=== PATIENT | male | born 1945 | race Caucasian/White ===

== ENCOUNTER 2019-09-26 22:49 | Emergency (ER) | payer OTHER ==
[2019-09-26] MEDS ORDERED: NA CHLORIDE 0.9% 1,000 ML ONE (23:19)
[2019-09-26 23:32] LABS: Absolute Lymphocytes (CBC) 0.8 K/uL (0.7-4.9); Basophils % 0.4 % (0-1.3); Hematocrit 44.3 % (39.6-49.0); Lymphocytes % 7.7 % (15.3-44.8); MPV 8.9 fL (7.6-11.3); RBC Red Blood Cell Count 5.04 M/uL (4.33-5.43)
[2019-09-26 23:51] LABS: Albumin 3.6 g/dL (3.4-5.0); Bilirubin Direct 0.4 mg/dL (0-0.2); Bilirubin Total 0.9 mg/dL (0.2-1.0); Potassium 3.8 mmol/L (3.5-5.1); Protein, Total 7.1 g/dL (6.4-8.2)
--- NOTE | 2019-09-27 01:06 | ER ---
Nurse's Notes [facility] Name: Baron Head Age: 73 yrs Sex: Male : 1945 Arrival Date: 09/26/2019 Time: 22:50 Bed 2 Private MD: Abhi Bauman Diagnosis: Choledocholithiasis Presentation: 09/26 23:03 Presenting complaint: Patient states: he is having pain in his abdomen all day the pain bb is worse when he eats he had an episode like this a few weeks ago and it went away after a few hours but the pain is not going away this time. Denies nausea, vomiting, diarrhea. Transition of care: patient was not received from another setting of care. Onset of symptoms was September 26, 2019. Risk Assessment: Do you want to hurt yourself or someone else? Patient reports no desire to harm self or others. Initial Sepsis Screen: Does the patient meet any 2 criteria? No. Patient's initial sepsis screen is negative. Does the patient have a suspected source of infection? No. Patient's initial sepsis screen is negative. Care prior to arrival: None. 23:03 Method Of Arrival: Ambulatory bb 23:03 Acuity: ABELARDO 3 bb Historical: - Allergies: 23:05 thorazine; bb 09/27 01:13 Sulfa (Sulfonamide Antibiotics); ea - Home Meds: 09/26 23:05 levothyroxine oral [Active]; bb - PMHx: 23:05 Hypothyroidism; bb - PSHx: 23:05 Appendectomy; bb - Immunization history:: Adult Immunizations up to date, Last tetanus immunization: up to date Flu vaccine is up to date. - Coronavirus screen:: The patient has NOT traveled to [place], [place], or [place] in the past 14 days. Proceed with normal triage process as indicated. - Social history:: Smoking status: Patient denies any tobacco usage or history of. - Ebola Screening: : No symptoms or risks identified at this time. Screenin:25 Abuse screen: Denies threats or abuse. Nutritional screening: No deficits noted. ea Tuberculosis screening: No symptoms or risk factors identified. Fall Risk IV access (20 points). Assessment: 23:24 General: Appears in no apparent distress. Behavior is calm, cooperative, appropriate ea for age. Pain: Complains of pain in right lower quadrant and left lower quadrant. Neuro: Level of Consciousness is awake, alert, obeys commands, Oriented to person, place, time, situation. Cardiovascular: Patient's skin is warm and dry. Respiratory: Airway is patent Respiratory effort is even, unlabored, Respiratory pattern is regular, symmetrical. GI: Abdomen is non-distended, Bowel sounds present X 4 quads. Abd is soft and non tender X 4 quads. Derm: Skin is pink, warm \T\ dry. 09/27 01:30 Reassessment: Patient and/or family updated on plan of care and expected duration. Pain ea level reassessed. Patient is alert, oriented x 3, equal unlabored respirations, skin warm/dry/pink. 02:50 Reassessment: Patient and/or family updated on plan of care and expected duration. Pain ea level reassessed. Patient is alert, oriented x 3, equal unlabored respirations, skin warm/dry/pink. EMS at facility for transfer, report given to [facility]. Pt left ED via stretcher per EMS. Pt tolerating well. No s/s of pain or discomfort noted at this time. Vital Signs: 09/26 23:05 BP 146 / 84; Pulse 72; Resp 16 S; Temp 98.5(O); Pulse Ox 96% on R/A; Weight 108.86 kg bb (R); Height 6 ft. 3 in. (190.50 cm) (R); Pain 6/10; 09/27 00:00 BP 128 / 70; Pulse 68; Resp 18; Pulse Ox 99% ; ea 01:45 BP 132 / 78; Pulse 80; Resp 18; Pulse Ox 98% ; ea 02:35 BP 128 / 70; Pulse 70; Resp 18; Temp 97.8; Pulse Ox 98% ; ea 09/26 23:05 Body Mass Index 30.00 (108.86 kg, 190.50 cm) bb ED Course: 09/26 22:50 Patient arrived in ED. es 22:51 Abhi Bauman MD is Private Physician. es 23:02 [facility] pm1 23:02 Poncho Morocho MD is Attending Physician. pm1 23:04 Triage completed. bb 23:05 Arm band placed on Patient placed in an exam room, on a stretcher, on pulse oximetry. bb Family accompanied patient. 23:15 Arianna Wyatt, RN is Primary Nurse. ea 23:24 Inserted saline lock: 20 gauge in right antecubital area, using aseptic technique. ea Blood collected. 23:26 Patient has correct armband on for positive identification. Placed in gown. Bed in low ea position. Call light in reach. 23:49 Radiology exam delayed due to lab results not completed at this time. (BUN/Creatinine). kw1 09/27 00:26 CT Abd/Pelvis - IV Contrast Only In Process Unspecified. EDMS 03:07 No provider procedures requiring assistance completed. Patient transferred, IV remains ea in place. Administered Medications: 09/26 23:53 Drug: NS 0.9% 1000 ml Route: IV; Rate: 1000 ml; Site: right antecubital; ea 09/27 01:00 Follow up: Response: No adverse reaction; IV Status: Completed infusion; IV Intake: ea 1000ml 01:08 CANCELLED (Physician Discretion): NS 0.9% 1000 ml IV at 1000 ml once pm1 01:15 Drug: Zosyn 3.375 grams Route: IVPB; Infused Over: 60 mins; Site: right antecubital; ea 02:00 Follow up: IV Status: Completed infusion ea 01:20 Drug: NS 0.9% 1000 ml Route: IV; Rate: 100 ml/hr; Site: right antecubital; ea 01:20 Drug: morphine 4 mg Route: IVP; Site: right antecubital; ea 02:30 Follow up: Response: Pain is decreased ea 01:53 Drug: Zofran 4 mg Route: IVP; Site: right antecubital; ea 02:30 Follow up: Response: No adverse reaction ea Intake: 01:00 IV: 1000ml; Total: 1000ml. ea Outcome: 01:05 ER care complete, transfer ordered by . pm1 01:30 Instructed on the need for transfer, Demonstrated understanding of instructions. ea 03:07 Transferred by ground EMS to [facility], Transfer form completed. ea 03:07 Condition: stable 03:10 Patient left the ED. ea Signatures: Dispatcher [employer] Christine Nunez Brenda, RN RN bb Marinas, Patrick, CALENDER ROLL OPERATOR CALENDER ROLL OPERATOR pm1 Arianna Wyatt RN RN ea Wilhelm, Kimberly kw1 Corrections: (The following items were deleted from the chart) 01:52 01:50 morphine 4 mg IVP in right antecubital ea federico
--- NOTE | 2019-09-27 01:06 | EDPHYS ---
Physician Documentation [facility] Name: Baron Head Age: 73 yrs Sex: Male : 1945 Arrival Date: 09/26/2019 Time: 22:50 Bed 2 Private MD: Abhi Bauman ED Physician Poncho Morocho HPI: 09/26 23:07 This 73 yrs old Male presents to ER via Ambulatory with complaints of pm1 Abdominal Pain. 23:07 The patient presents with abdominal pain in the epigastric area. Onset: The pm1 symptoms/episode began/occurred has been on and off for the past 3 weeks but worse today. The symptoms do not radiate. Associated signs and symptoms: none. The symptoms are described as crampy. Modifying factors: The symptoms are alleviated by nothing, the symptoms are aggravated by food, pain within 30 minutes of eating food. Severity of pain: in the emergency department the pain has improved is a 2 / 10. The patient has not experienced similar symptoms in the past. It is unknown whether or not the patient has recently seen a physician. 09/27 01:38 Last PO intake 1800 Chips and Dip. pm1 Historical: - Allergies: 09/26 23:05 thorazine; bb 09/27 01:13 Sulfa (Sulfonamide Antibiotics); ea - Home Meds: 09/26 23:05 levothyroxine oral [Active]; bb - PMHx: 23:05 Hypothyroidism; bb - PSHx: 23:05 Appendectomy; bb - Immunization history:: Adult Immunizations up to date, Last tetanus immunization: up to date Flu vaccine is up to date. - Coronavirus screen:: The patient has NOT traveled to [place], [place], or [place] in the past 14 days. Proceed with normal triage process as indicated. - Social history:: Smoking status: Patient denies any tobacco usage or history of. - Ebola Screening: : No symptoms or risks identified at this time. ROS: 23:07 Constitutional: Negative for fever, chills, and weight loss, Neck: Negative for injury, pm1 pain, and swelling, Cardiovascular: Negative for chest pain, palpitations, and edema, Respiratory: Negative for shortness of breath, cough, wheezing, and pleuritic chest pain. 23:07 Back: Negative for injury and pain, : Negative for injury, bleeding, discharge, and swelling, MS/Extremity: Negative for injury and deformity, Skin: Negative for injury, rash, and discoloration, Neuro: Negative for headache, weakness, numbness, tingling, and seizure. 23:07 Abdomen/GI: Positive for abdominal pain, Negative for nausea, vomiting, and diarrhea, constipation. Exam: 23:07 Constitutional: This is a well developed, well nourished patient who is awake, alert, pm1 and in no acute distress. Head/Face: Normocephalic, atraumatic. Neck: Trachea midline, no thyromegaly or masses palpated, and no cervical lymphadenopathy. Supple, full range of motion without nuchal rigidity, or vertebral point tenderness. No Meningismus. Chest/axilla: Normal chest wall appearance and motion. Nontender with no deformity. No lesions are appreciated. Cardiovascular: Regular rate and rhythm with a normal S1 and S2. No gallops, murmurs, or rubs. Normal PMI, no JVD. No pulse deficits. Respiratory: Lungs have equal breath sounds bilaterally, clear to auscultation and percussion. No rales, rhonchi or wheezes noted. No increased work of breathing, no retractions or nasal flaring. Abdomen/GI: Soft, non-tender, with normal bowel sounds. No distension or tympany. No guarding or rebound. No evidence of tenderness throughout. Back: No spinal tenderness. No costovertebral tenderness. Full range of motion. Skin: Warm, dry with normal turgor. Normal color with no rashes, no lesions, and no evidence of cellulitis. MS/ Extremity: Pulses equal, no cyanosis. Neurovascular intact. Full, normal range of motion. 23:07 Neuro: Orientation: is normal, Motor: is normal, moves all fours. Vital Signs: 23:05 BP 146 / 84; Pulse 72; Resp 16 S; Temp 98.5(O); Pulse Ox 96% on R/A; Weight 108.86 kg bb (R); Height 6 ft. 3 in. (190.50 cm) (R); Pain 02/01; 03 00:00 BP 128 / 70; Pulse 68; Resp 18; Pulse Ox 99% ; ea 01:45 BP 132 / 78; Pulse 80; Resp 18; Pulse Ox 98% ; ea 02:35 BP 128 / 70; Pulse 70; Resp 18; Temp 97.8; Pulse Ox 98% ; ea 09/26 23:05 Body Mass Index 30.00 (108.86 kg, 190.50 cm) bb MDM: 09/26 23:02 Patient medically screened. pm1 23:08 Data reviewed: vital signs. Data interpreted: Pulse oximetry: on room air is 96 %. pm1 Interpretation: normal. 09/27 01:02 Counseling: I had a detailed discussion with the patient and/or guardian regarding: the pm1 historical points, exam findings, and any diagnostic results supporting the discharge/admit diagnosis, lab results, radiology results, the need to transfer to another facility, [facility] does not immediately have the required specialist, No GI consult available here. 01:37 Physician consultation: GI MD Porter was contacted at 01:38, regarding regarding pm1 transfer, patient's condition, and will see patient. 02:13 Physician consultation: MD Souza was contacted at 02:05, regarding regarding pm1 transfer, patient's condition. 09/26 23:06 Order name: Basic Metabolic Panel; Complete Time: 23:55 pm1 09/26 23:06 Order name: CBC with Diff; Complete Time: 23:55 pm1 09/26 23:06 Order name: Creatinine for Radiology; Complete Time: 23:55 pm1 09/26 23:06 Order name: Hepatic Function; Complete Time: 23:55 pm1 09/26 23:06 Order name: Lipase; Complete Time: 23:55 pm1 09/26 23:06 Order name: CT Abd/Pelvis - IV Contrast Only pm1 09/26 23:06 Order name: IV Saline Lock; Complete Time: 23:53 pm1 09/26 23:06 Order name: Labs collected and sent; Complete Time: 23:53 pm1 09/27 01:02 Order name: NPO; Complete Time: 01:52 pm1 Administered Medications: 09/26 23:53 Drug: NS 0.9% 1000 ml Route: IV; Rate: 1000 ml; Site: right antecubital; ea 09/27 01:00 Follow up: Response: No adverse reaction; IV Status: Completed infusion; IV Intake: ea 1000ml 01:08 CANCELLED (Physician Discretion): NS 0.9% 1000 ml IV at 1000 ml once pm1 01:15 Drug: Zosyn 3.375 grams Route: IVPB; Infused Over: 60 mins; Site: right antecubital; ea 02:00 Follow up: IV Status: Completed infusion ea 01:20 Drug: NS 0.9% 1000 ml Route: IV; Rate: 100 ml/hr; Site: right antecubital; ea 01:20 Drug: morphine 4 mg Route: IVP; Site: right antecubital; ea 02:30 Follow up: Response: Pain is decreased ea 01:53 Drug: Zofran 4 mg Route: IVP; Site: right antecubital; ea 02:30 Follow up: Response: No adverse reaction ea Disposition: 03:14 Co-signature as Attending Physician, Poncho Morocho MD. pkl Disposition: 09/27/19 01:05 Transfer ordered to [facility]. Diagnosis is Choledocholithiasis. - Reason for transfer: Specialty. - Accepting physician is [facility]. - Condition is Stable. - Problem is new. - Symptoms have improved. Signatures: Dispatcher [employer] EDMS Poncho Morocho MD MD pkl Lis Morel, RN RN bb Soto Chery NP MARINE RESOURCE ECONOMIST pm1 Arianna Wyatt RN RN ea Corrections: (The following items were deleted from the chart) 01:08 01:08 NS 0.9% 1000 ml IV at 1000 ml once ordered. pm1 pm1 03:10 01:05 09/27/2019 01:05 Transfer ordered to [facility]. ea Diagnosis is Choledocholithiasis. Reason for transfer: Specialty. Accepting physician is [facility]. Condition is Stable. Problem is new. Symptoms have improved. pm1
[2019-09-27] MEDS ORDERED: NA CHLORIDE 0.9% 1,000 ML ONE (01:21)
[2019-09-27] MEDS ORDERED: MORPHINE 4 MG/ML SYR ONE (01:21)
[2019-09-27] MEDS ORDERED: ONDANSETRON 4 MG/2 ML VIAL ONE (01:21)
[2019-09-27] MEDS ORDERED: PIPER/TAZO/NS 3.375gm 3.375 GM/100 ML BAG ONE (01:22)
[2019-09-27] MEDS ORDERED: DIPHENHYDRAMINE 50 MG/ML VIAL ONE (02:34)
[2019-09-27 03:19] VITALS: O2SAT 98
[2019-09-27 03:20] VITALS: BP 128/70; TEMP 97.8
--- NOTE | 2019-09-27 11:29 | RAD REPORT ---
EXAM DESCRIPTION: CT - Abdomen Pelvis W Contrast - 09/27/2019 6:24 am COMPARISON: None CLINICAL HISTORY: Abdominal pain TECHNIQUE: Multiple helical axial images were obtained through the abdomen and pelvis using intraven ous contrast. Coronal and sagittal reformatted images were obtained. All CT scans at this facility use dose modulation, iterative reconstruction, and/or weight-based dosi ng when appropriate to reduce radiation dose to as low as reasonably achievable. FINDINGS: Lung bases: There are few small thin-walled cysts in the right lower lobe. Liver: There is slight low attenuation which may reflect fatty changes. Gallbladder/biliary: There are two adjacent rounded densities in the distal common bile measuring 1 c m compatible with choledocholithiasis with associated biliary ductal dilatation. Common bile duct dayne sures up to 1.3 cm in width. Gallbladder appears mildly distended. No evidence of pericholecystic inf lammatory changes. Pancreas: Unremarkable. No evidence of ductal enlargement. Spleen: Appears unremarkable. No splenomegaly. Adrenals: Unremarkable. Kidneys and ureters: No evidence of hydronephrosis. Normal enhancement. There are a few small renal peripelvic cysts bilaterally. Bladder: Unremarkable. Pelvic organs: Prostate appears mildly enlarged. Bowel: Colonic diverticula are present. Small duodenal diverticulum noted. No evidence of bowel obstr uction. No bowel wall thickening. Appendix appears unremarkable. Vasculature: Mild aortoiliac atherosclerosis is present. Peritoneum: No free air. No significant free fluid. Lymph nodes: Unremarkable. Soft tissues: Small fat-containing umbilical hernia is present. There are small fat-containing inguin al hernias bilaterally. Bones: Unremarkable. TECHNIQUE: 1. Choledocholithiasis with biliary ductal dilatation. 2. Mildly distended gallbladder. 3. Colonic diverticulosis. Electronically signed by: Daniel Valadez MD 09/27/2019 12:46 AM AIRCRAFT DE ICER INSTALLER Due to temporary technical issues with the PACS/Fluency reporting system, reports are being signed by the in house radiologist as a courtesy to ensure prompt reporting. The interpreting radiologist is f ully responsible for the content of the report.
== END 2019-09-27 03:10 | disposition short-term general hospital (02) ==
LOC: ER 22:49
DX: K80.50 Calculus of bile duct without cholangitis or cholecystitis without obstruction (principal); E03.9 Hypothyroidism, unspecified; Z88.2 Allergy status to sulfonamides; Z88.8 Allergy status to other drugs, medicaments and biological substances
CPT/HCPCS: 96365; 96361; 85025; 80048; 36415; 80076; 83690; 74177; 96375; 99285; Q9967; J1200; J2543; J7030 ×2; J2405

== ENCOUNTER 2019-10-18 07:19 | Day surgery (SDC) | payer OTHER ==
[2019-10-15 09:42] LABS: Absolute Lymphocytes (CBC) 1.4 K/uL (0.7-4.9); Basophils % 1.2 % (0-1.3); Hematocrit 43.5 % (39.6-49.0); Lymphocytes % 29.8 % (15.3-44.8); MPV 8.8 fL (7.6-11.3); RBC Red Blood Cell Count 4.97 M/uL (4.33-5.43)
[2019-10-15 09:57] LABS: Potassium 4.3 mmol/L (3.5-5.1)
[2019-10-15 10:00] LABS: Albumin 3.5 g/dL (3.4-5.0); Bilirubin Direct 0.2 mg/dL (0-0.2); Bilirubin Total 0.4 mg/dL (0.2-1.0); Protein, Total 7.1 g/dL (6.4-8.2)
--- NOTE | 2019-10-15 10:25 | RAD REPORT ---
EXAM DESCRIPTION: Annabella Moreland (2 Views)10/15/2019 9:53 am CLINICAL HISTORY: Preop for gallbladder surgery. Abdominal pain COMPARISON: None FINDINGS: The lungs appear clear of acute infiltrate. The heart is normal size. Ankylosing spondylitis involves the thoracic spine IMPRESSION: No acute abnormalities displayed
--- NOTE | 2019-10-15 11:30 | EKG ---
Test Date: 2019-10-15 Test Time: 09:13:51 Clinical Engineering Director: KRISH MEASUREMENT RESULTS: Intervals: Rate: 58 VT: 198 QRSD: 90 QT: 418 QTc: 410 Mcintosh: P: 53 VT: 198 QRS: 13 T: 36 INTERPRETIVE STATEMENTS: Sinus bradycardia Otherwise normal ECG Compared to ECG 12/01/2006 06:37:00 Sinus rhythm no longer present Electronically Signed On 10-15-19 11:30:23 INTERVENTIONAL TECHNOLOGIST by Julio Hopkins
--- OUTSIDE RECORDS SUMMARY | 2019-10-18 07:22 | XMS REPORT ---
:1945 [facility] Address [address] [place] [address] [address] [place] [address] Care Team Providers Name Role Phone EN GEIGER Unavailable Unavailable Problems This patient has no known problems. Allergies, Adverse Reactions, Alerts This patient has no known allergies or adverse reactions. Medications This patient has no known medications. Results Test Description Test Time Test Comments Text Results Atomic Results Result Comments BLOOD CULTURE 2019-10-02 07:00:00 Test Item Value Reference Range Comments CULTURE (BEAKER) (test coin=1869) No growth in 5 days POCT-GLUCOSE [id number] 12:56:00 Test Item Value Reference Range Comments POC-GLUCOSE METER (BEAKER) 108 mg/dL 70-110 : TESTED AT [facility] [address] [facility] (test szla=4185) [facility], [id number]: Social Media Analyst/Job Analyst [id number] for TRINITYMICHAEL PRETTYIA POCT-GLUCOSE [id number] 08:43:00 Test Item Value Reference Range Comments POC-GLUCOSE METER (BEAKER) 97 mg/dL 70-110 : TESTED AT [facility] [address] [facility] (test rpez=3728) [facility], [address]: Social Media Analyst/Job Analyst [id number] for [employer]ITY, [facility] [id number] 08:07:00 Test Item Value Reference Range Comments TOTAL PROTEIN (BEAKER) (test ztec=821) 6.1 gm/dL 6.0-8.3 ALBUMIN (BEAKER) (test mgak=3121) 3.4 g/dL 3.5-5.0 BILIRUBIN TOTAL (BEAKER) (test emus=772) 1.3 mg/dL 0.2-1.2 BILIRUBIN DIRECT (BEAKER) (test lcwk=046) 0.7 mg/dL 0.1-0.5 ALKALINE PHOSPHATASE (BEAKER) (test ypve=754) 67 U/L 40-150 AST (SGOT) (BEAKER) (test yayl=314) 129 U/L 5-34 ALT (SGPT) (BEAKER) (test csgt=032) 231 U/L 6-55 Social Media Analyst ID - SOULEYMANE MBASIC METABOLIC [id number] 04:15:00 Test Item Value Reference Range Comments SODIUM (BEAKER) (test 141 meq/L 136-145 cqgk=270) POTASSIUM (BEAKER) (test 4.1 meq/L 3.5-5.1 bdth=740) CHLORIDE (BEAKER) (test 113 meq/L 98-107 zhen=179) CO2 (BEAKER) (test 23 meq/L 22-29 esfm=649) BLOOD UREA NITROGEN 17 mg/dL 7-21 (BEAKER) (test bhuv=622) CREATININE (BEAKER) (test 0.93 mg/dL 0.57-1.25 fogf=660) GLUCOSE RANDOM (BEAKER) 103 mg/dL 70-105 (test zjzc=887) CALCIUM (BEAKER) (test 8.7 mg/dL 8.4-10.2 oiih=931) EGFR (BEAKER) (test 80 mL/min/1.73 sq m ESTIMATED GFR IS NOT pmrj=5390) ACCURATE CREATININE CLEARANCE IN PREDICTING GLOMERULAR FILTRATION RATE. ESTIMATED GFR IS NOT APPLICABLE FOR DIALYSIS PATIENTS. Social Media Analyst ID - SOULEYMANE MPOCT-GLUCOSE [id number] 23:45:00 Test Item Value Reference Range Comments POC-GLUCOSE METER (BEAKER) 94 mg/dL 70-110 : TESTED AT [facility] [address] [facility] (test xzcl=2869) [facility], [address]: Social Media Analyst/Job Analyst [id number] for Iglesia Arias POCT-GLUCOSE [id number] 21:19:00 Test Item Value Reference Range Comments POC-GLUCOSE METER (BEAKER) 90 mg/dL 70-110 : TESTED AT [facility] [address] [facility] (test zmwa=8706) [facility], [address]: Social Media Analyst/Job Analyst [id number] for MARYA ALANIS, [id number] 18:10:00Intra-op imagingReason for exam:-> choledocholethiasisFINAL REPORT A fluoroscopic unit was utilized for a procedure performed in the operating room. No interpretation was requested. Please refer to the operative report regarding findings. Please refer to PACS for patient radiation dose information. Signed: Will Martinez Verified Date/Time: 09/27/2019 18:10:45 Reading Location: [facility] C013W Consult Reading Room T4, [id number] 07:36:00 Test Item Value Reference Range Comments FREE T4 (BEAKER) (test ynzi=401) 1.33 ng/dL 0.70-1.48 Social Media Analyst ID - SINA FPOCT-GLUCOSE [id number] 06:05:00 Test Item Value Reference Range Comments POC-GLUCOSE METER (BEAKER) 128 mg/dL 70-110 : TESTED AT [facility] [address] [place] [address] (test vavp=0791) [facility], [address]: Social Media Analyst/Job Analyst [id number] for Arias, Ilcibeth TSH/FREE T4 IF [id number] 06:05:00 Test Item Value Reference Range Comments THYROID STIMULATING HORMONE (BEAKER) (test 0.33 uIU/mL 0.35-4.94 jinm=585) Social Media Analyst ID - NILDAJUAN ALBERTO LHEPATIC FUNCTION [id number] 06:03:00 Test Item Value Reference Range Comments TOTAL PROTEIN (BEAKER) (test eusw=274) 6.6 gm/dL 6.0-8.3 ALBUMIN (BEAKER) (test scqb=2349) 3.9 g/dL 3.5-5.0 BILIRUBIN TOTAL (BEAKER) (test jdbx=503) 1.7 mg/dL 0.2-1.2 BILIRUBIN DIRECT (BEAKER) (test phnl=870) 1.2 mg/dL 0.1-0.5 ALKALINE PHOSPHATASE (BEAKER) (test garm=876) 97 U/L 40-150 AST (SGOT) (BEAKER) (test amiy=985) 443 U/L 5-34 ALT (SGPT) (BEAKER) (test ofes=806) 374 U/L 6-55 Social Media Analyst ID - JEANNE LBASIC METABOLIC [id number] 06:03:00 Test Item Value Reference Range Comments SODIUM (BEAKER) (test 140 meq/L 136-145 nypd=202) POTASSIUM (BEAKER) (test 4.0 meq/L 3.5-5.1 swri=824) CHLORIDE (BEAKER) (test 112 meq/L 98-107 llzt=821) CO2 (BEAKER) (test 21 meq/L 22-29 kqbz=670) BLOOD UREA NITROGEN 17 mg/dL 7-21 (BEAKER) (test jehi=838) CREATININE (BEAKER) (test 0.94 mg/dL 0.57-1.25 eyse=190) GLUCOSE RANDOM (BEAKER) 126 mg/dL 70-105 (test ubkr=554) CALCIUM (BEAKER) (test 9.3 mg/dL 8.4-10.2 rxtf=544) EGFR (BEAKER) (test 79 mL/min/1.73 sq m ESTIMATED GFR IS NOT chly=1874) ACCURATE CREATININE CLEARANCE IN PREDICTING GLOMERULAR FILTRATION RATE. ESTIMATED GFR IS NOT APPLICABLE FOR DIALYSIS PATIENTS. Social Media Analyst ID - PIAYA LCBC W/PLT COUNT & AUTO [id number] 05:50:00 Test Item Value Reference Range Comments WHITE BLOOD CELL COUNT (BEAKER) (test rnpa=960) 10.6 K/ L 3.5-10.5 RED BLOOD CELL COUNT (BEAKER) (test rvtf=409) 4.90 M/ L 4.63-6.08 HEMOGLOBIN (BEAKER) (test ghmp=388) 13.7 GM/DL 13.7-17.5 HEMATOCRIT (BEAKER) (test jryc=557) 43.7 % 40.1-51.0 MEAN CORPUSCULAR VOLUME (BEAKER) (test fwzh=985) 89.2 fL 79.0-92.2 MEAN CORPUSCULAR HEMOGLOBIN (BEAKER) (test 28.0 pg 25.7-32.2 dmjc=402) MEAN CORPUSCULAR HEMOGLOBIN CONC (BEAKER) (test 31.4 GM/DL 32.3-36.5 gmgo=067) RED CELL DISTRIBUTION WIDTH (BEAKER) (test 13.4 % 11.6-14.4 ogtn=103) PLATELET COUNT (BEAKER) (test ujam=742) 152 K/CU MM 150-450 MEAN PLATELET VOLUME (BEAKER) (test bmss=569) 10.3 fL 9.4-12.4 NUCLEATED RED BLOOD CELLS (BEAKER) (test 0 /100 WBC 0-0 kswk=789) NEUTROPHILS RELATIVE PERCENT (BEAKER) (test 89 % mluh=113) LYMPHOCYTES RELATIVE PERCENT (BEAKER) (test 3 % httj=824) MONOCYTES RELATIVE PERCENT (BEAKER) (test 7 % jdde=852) EOSINOPHILS RELATIVE PERCENT (BEAKER) (test 0 % pchp=785) BASOPHILS RELATIVE PERCENT (BEAKER) (test 0 % tang=231) NEUTROPHILS ABSOLUTE COUNT (BEAKER) (test 9.42 K/ L 1.78-5.38 vxdi=004) LYMPHOCYTES ABSOLUTE COUNT (BEAKER) (test 0.26 K/ L 1.32-3.57 kkyz=028) MONOCYTES ABSOLUTE COUNT (BEAKER) (test 0.78 K/ L 0.30-0.82 vfjt=993) EOSINOPHILS ABSOLUTE COUNT (BEAKER) (test 0.03 K/ L 0.04-0.54 wyjf=356) BASOPHILS ABSOLUTE COUNT (BEAKER) (test 0.02 K/ L 0.01-0.08 zmsi=653) IMMATURE GRANULOCYTES-RELATIVE PERCENT (BEAKER) 1 % 0-1 (test asjd=0091) PROTHROMBIN TIME/[id number] 05:36:00 Test Item Value Reference Range Comments PROTIME (BEAKER) (test hnlg=275) 14.7 seconds 11.9-14.2 INR (BEAKER) (test tefn=761) 1.2 <=5.9 Effective 01/20/2019: PT Reference Range ChangeNew: 11.9-14.2 Previous: 11.7- 14.7RECOMMENDED COUMADIN/WARFARIN INR THERAPY RANGESSTANDARD DOSE: 2.0-3.0 Includes: PROPHYLAXIS for venous thrombosis, systemic embolization; TREATMENT for venous thrombosis and/or pulmonary embolus.HIGH RISK: Target INR is2.5-3.5 for patients wiht mechanical heart valves.
[2019-10-18] MEDS ORDERED: CEFOXITIN/SWI 1gm 1 GM/10 ML SYR ONE (07:49)
[2019-10-18] MEDS ORDERED: Ringers Lactate 1,000 ML IV ONE ×2 (07:49→09:21)
[2019-10-18] MEDS ORDERED: MIDAZOLAM HCL 2 MG/2 ML INJ ONE (08:17)
[2019-10-18] MEDS ORDERED: FENTANYL CITR 100 MCG/2 ML ONE ×2 (08:17→09:28)
[2019-10-18] MEDS ORDERED: propofoL 200 MG/20 ML VIAL IV ONE (08:17)
[2019-10-18] MEDS ORDERED: LIDOCAINE 2% MPF 5 ML VIAL ONE (08:18)
[2019-10-18] MEDS ORDERED: ROCURONIUM 50 MG/5 ML VIAL IV ONE (08:19)
[2019-10-18] MEDS ORDERED: GLYCOPYRROLATE 0.2 MG/ML SYR ONE ×2 (09:07→09:28)
[2019-10-18] MEDS ORDERED: EPHEDRINE SULF 50 MG/ML VIAL ONE (09:09)
[2019-10-18] MEDS ORDERED: ONDANSETRON 4 MG/2 ML VIAL ONE (09:28)
[2019-10-18] MEDS ORDERED: dexAMETHasone 4 MG/ML VIAL ONE (09:28)
[2019-10-18] MEDS ORDERED: NEOSTIGMINE 1 MG/ML -5 ML ONE (09:28)
[2019-10-18] MEDS ORDERED: PROMETHAZINE INJ 25 MG/ML AMP ONE (10:10)
[2019-10-18] MEDS ORDERED: HYDROMORPHONE HCL 1 MG/ML INJ ONE (10:11)
[2019-10-18] MEDS ORDERED: HYDROCODONE/APAP 7.5/325 MG TAB ONE (10:52)
[2019-10-18 11:12] VITALS: TEMP 96.6; O2SAT 97
[2019-10-18 12:16] VITALS: BP 126/59
--- NOTE | 2019-10-18 13:01 | OP ---
Date of Procedure: 10/18/2019 Surgeon: Saran Koehler MD Art Tracer: SANJAY Gilmore. Preoperative Diagnoses: Chronic cholecystitis, cholelithiasis, choledocholithiasis status post endos copic retrograde cholangiopancreatography. Postoperative Diagnoses: Chronic cholecystitis, cholelithiasis, choledocholithiasis status post endo scopic retrograde cholangiopancreatography. Procedure: Laparoscopic cholecystectomy. Estimated Blood Loss: Minimal. Specimens: Gallbladder. Findings: As above. Anesthesia: General. Complications: None. Disposition: Patient tolerated the procedure in stable condition, taken to Recovery in good general condition. Operative Note: The patient was brought to the OR and placed in supine position. General anesthesia was begun. The patient was prepped and draped in the usual sterile fashion. Marcaine 0.5% was infi ltrated locally. A 15-blade was used to make a 1 cm supraumbilical midline incision. Subcutaneous t issue divided. Fascia was identified and divided. #1 Vicryl stay suture was placed. Peritoneal cav ity was entered with sharp and blunt dissection. 12 mm trocar placed into the peritoneal cavity unde r direct vision. Pneumoperitoneum established. Then, three 5 mm trocars placed under direct vision; 1 in the epigastrium just to the right of midline and 2 in the right subcostal region. Laparoscopy revealed chronic inflammation of the gallbladder with some omental adhesions attached to it. The fun dus was retracted superiorly. Adhesions were taken down with sharp and blunt dissection. Bleeding w as controlled with cautery. Infundibulum was identified and retracted inferolaterally. Cystic duct and cystic artery were clearly identified with blunt dissection. Clips placed. Both structures divi ded. Cautery was used to remove the gallbladder from the liver bed. Bleeding on the liver bed was c ontrolled with cautery. The gallbladder was retrieved through the umbilicus via an EndoCatch bag. R ight upper quadrant was irrigated. Effluent was clear. No evidence of bleeding or bile leakage appr eciated. Subsequently, all trocars were removed under direct vision. Stay sutures were tied to each other to approximate the fascial defect. Subcutaneous wounds were irrigated. Bleeding was controll ed with cautery. 3-0 chromic used to approximate the subcutaneous tissue and close the skin. Steril e dressing was applied. Patient was awakened and taken to Recovery in good general condition. /MODL Voice ID: [id number] Report ID: [id number]
--- NOTE | 2019-10-18 13:03 | DS ---
Date of Discharge: 10/18/2019 Patient will go to Day Surgery, then home when stable. Disposition: Home. Condition: Stable. Discharge Instructions: Resume home medications and diet. Activity as tolerated. No heavy lifting. Remove outer dressing in 2 days. Shower. Keep wound clean and dry. Follow up in my office in 1 w moapa. Call for appointment. Keep Steri-Strips on at all times. Tylenol No. 3 one tablet p.o. q.4 p. r.n. pain. Incentive spirometry is ordered. /MODL Voice ID: [id number] Report ID: [id number]
== END 2019-10-18 11:45 | disposition home or self-care (01) ==
LOC: OR 07:19
PROVIDERS: ATTEND Surgery
PROC: 0FT44ZZ Resection of Gallbladder, Percutaneous Endoscopic Approach (ICD-10-PCS; principal; 2019-10-18 08:30)
DX: K80.64 Calculus of gallbladder and bile duct with chronic cholecystitis without obstruction (principal); Z98.890 Other specified postprocedural states; Z88.2 Allergy status to sulfonamides; Z88.6 Allergy status to analgesic agent; Z88.8 Allergy status to other drugs, medicaments and biological substances
CPT/HCPCS: 93005; 85025; 80048; 36415; 82150; 80076; 88304; 71046; 47562; J2704; J2550; J2250; J3010 ×2; J1170; J2710; J7120 ×2; J2405

== ENCOUNTER → 2022-09-03 | Day surgery (SDC) | payer OTHER ==
--- NOTE | 2022-09-03 13:27 | RAD REPORT ---
EXAM DESCRIPTION: US - Guided FNA Non Breast - 09/03/2022 10:45 am CLINICAL HISTORY: Thyroid nodule ICD E07.9 COMPARISON: July 25, 2022 ultrasound TECHNIQUE: Risks, benefits and alternatives of procedure explained to the patient and informed conse nt obtained. Skin and subcutaneous tissues anesthetized with lidocaine. Under sonographic guidance, five 25 gauge needle passes were obtained into the dominant nodule within the right lobe of the thyroid gland. Specimens given to pathology. Patient experienced no immediate complication IMPRESSION: Fine-needle aspiration of a dominant nodule within the right lobe of thyroid gland
== END ==
LOC: FNA 09:40
PROVIDERS: ATTEND Family Medicine
PROC: 0GBH3ZX Excision of Right Thyroid Gland Lobe, Percutaneous Approach, Diagnostic (ICD-10-PCS; principal; 2022-09-03)
DX: E07.9 Disorder of thyroid, unspecified (principal)
CPT/HCPCS: 88162